=== PATIENT | female | born 1960 | race Caucasian/White ===

== ENCOUNTER → 2016-08-23 | Day surgery (SDC) | payer MEDICARE ==
[~2016-08-23] MED LIST: ALPR0.25 PO; BUPIVACAINE HCL PF 0.5% 10 ML VIAL ONE; CALC250 PO; CYCL-36 PO; DOCU1CAP39 PO; GLIM1TAB PO; HYDR-3129 PO; KETOROLAC TROMETHAMINE 30 MG/ML (IVP) VIAL IV PUSH ONE; LACTATED RINGER'S 1000 ML INJ 1,000 ML ONE; LEXA10TA PO; LISI-366 PO; METF-324 PO; MIDAZOLAM HCL 2 MG/2 ML VIAL ONE; MORP1CAP63 PO; OMEP20TA PO; ONDANSETRON HCL 4 MG/2 ML VIAL IV PUSH ONE; PRAV10 PO; PROPOFOL 200 MG/20 ML AMP IV ONE; RIVA10 PO; TRAD5TAB PO; WALKER STANDARD; ceFAZolin 2 GM PREMIX 50 ML ONE
--- NOTE | 2016-08-23 15:31 | TN ---
cc: DENA ROWE DATE OF SURGERY: 08/23/2016 PREOPERATIVE DIAGNOSIS Palpable right breast mass with confirmed diagnosis of amyloid. POSTOPERATIVE DIAGNOSIS Palpable right breast mass with confirmed diagnosis of amyloid. PROCEDURE PERFORMED Excisional biopsy of right breast mass. SURGEON Dena Rowe ANESTHESIA General via LMA device. INDICATION The patient is a 56-year-old female with a palpable right breast mass and previous ultrasound-guided core biopsy demonstrating amyloid deposition. She now presents for re-excision of the mass for further characterization. FINDINGS At the time of surgery a palpable mass was identified at 10 o'clock, 3 cm from the nipple, and this was easily excised. PROCEDURE After informed consent was obtained and site verification was performed, the patient was brought to the major operating room where she underwent general anesthesia via an LMA device. She was given a single dose of IV Ancef and sequential compression hose were placed. The right breast was prepped and draped in sterile fashion. A periareolar skin incision was anesthetized with 0.5% Marcaine plain and incised sharply. Sharp and electrocautery dissection was performed until the palpable mass was identified and circumferentially dissected free from surrounding structures. The specimen was oriented with two sutures anteriorly, one short suture superiorly, and one long suture laterally. It was completely removed and sent for pathologic evaluation. Hemostasis was easily obtained with electrocautery and the wound was closed using interrupted 3-0 Vicryl subcutaneous sutures and 4-0 Monocryl subcuticular suture. Steri-Strips and a sterile dressing were applied. The patient tolerated the procedure well with minimal blood loss and she was extubated in the operating room and brought to the recovery room in good condition. All sponge and needle counts were correct at the conclusion of the case. MD LINH Silva/HAWK /2:31 PM /3:22 PM
== END | disposition home or self-care (01) ==
LOC: ESDC 10:55
PROVIDERS: ATTEND Surgery
DX: D24.1 Benign neoplasm of right breast (principal)
CPT/HCPCS: 00400; 19301; 88307; J0690; J1885; J2250; J2405; J3010; J7120